=== PATIENT | male | born 1960 | race Caucasian/White ===

== ENCOUNTER 2016-06-08 13:24 | Emergency (ER) | payer BC ==
[~2016-06-08] VITALS: Ht 177.8 cm; Wt 81.6 kg
[2016-06-08 13:31] VITALS: BP 142/75; PULSE 83; RESP 16; TEMP 97.8; O2SAT 98
[2016-06-08 13:54] LABS: HEMATOCRIT 48.5 % (36-54); HEMOGLOBIN 15.9 g/dL (14.0-18.0); MEAN CORPUSCULAR HEMOGLOBIN 29 pg (27-31); MEAN CORPUSCULAR HGB CONC 33 % (32-36); MEAN CORPUSCULAR VOLUME 89 fL (79.0-98.0); PLATELET COUNT (AUTO) 233 K/uL (130-430); RED BLOOD CELL COUNT(AUTO) 5.44 MIL/uL (4.2-6.2); RED CELL DISTRIBUTION WIDTH 13.1 % (9.0-15.0); WHITE BLOOD COUNT (AUTO) 9.7 K/uL (4.8-10.8)
[2016-06-08 13:55] LABS: BASOPHILS # (AUTO) 0.1 K/uL (0.0-0.2); BASOPHILS % (AUTO) 1.3 % (0.0-2.0); EOSINOPHILS # (AUTO) 0.2 K/uL (0.0-0.4); EOSINOPHILS % (AUTO) 1.6 % (0.0-4.0); LYMPHOCYTES # (AUTO) 2.9 K/uL (1.0-5.5); LYMPHOCYTES % (AUTO) 29.6 % (20.5-51.5); MONOCYTES # (AUTO) 0.7 K/uL (0.0-1.0); MONOCYTES % (AUTO) 7.2 % (1.7-9.3); NEUTROPHILS # (AUTO) 5.8 K/uL (1.8-7.7); NEUTROPHILS % (AUTO) 60.3 % (40.0-70.0)
[2016-06-08 14:03] LABS: CALCIUM 9.3 mg/dL (8.4-11.0); CREATININE 0.96 mg/dL (0.55-1.30); POTASSIUM 4.3 mmol/L (3.5-5.1)
--- NOTE | 2016-06-08 15:00 | NUR ---
Patient to ER bed 2 to gown for evaluation. Side rails up. Report given to TERE DOHERTY.
--- NOTE | 2016-06-08 15:10 | NUR ---
ER at bedside examining patient.
--- NOTE | 2016-06-08 15:10 | NUR ---
Pt came into ther ER in stable condition. Pt c/o of chest wall pain, numbness to left arm x2 wks. Pt stated that he has hx of high cholesterol. EKG was done in [facility] and read by Dr. Cassidy. Pt able to walk to bed 2. -sob -diaphoretic. No acute distress noted at this time, will continue to monitor
[2016-06-08 15:25] VITALS: BP 117/80; PULSE 77; RESP 12; TEMP 98.9; O2SAT 99
--- NOTE | 2016-06-08 15:25 | NUR ---
Patient given written and verbal discharge instructions and verbalizes understanding. ER MD Cassidy discussed with patient the results and treatment provided. Patient in stable condition. ID arm band removed. Patient educated on pain management and to follow up with PMD. Pain Scale 0/10. Opportunity for questions provided and answered.
== END 2016-06-08 15:25 | disposition home or self-care (01) ==
LOC: SED 13:24
DX: F41.9 Anxiety disorder, unspecified (principal); R07.89 Other chest pain; E78.5 Hyperlipidemia, unspecified
CPT/HCPCS: 36415; 71010; 80048; 84484; 85025; 93005; 99285